=== PATIENT | female | born 1950 | race Hispanic/Latino ===

== ENCOUNTER 2019-10-01 15:39 | Outpatient (CLI) | payer MEDICARE, BC ==
--- NOTE | 2019-10-05 15:10 | MMO ---
Bilateral MAMMO Bilat Screen [facility]. CLINICAL HISTORY: Patient is 69 years old and is seen for screening. The patient has the following family history of breast cancer: niece. VIEWS: The views performed were: bilateral craniocaudal with tomosynthesis and bilateral mediolateral oblique with tomosynthesis. FILMS COMPARED: The present examination has been compared to prior imaging studies performed at [facility] on 12/06/2011, 11/11/2014 and 08/21/2016. This study has been interpreted with the assistance of computer-aided detection. MAMMOGRAM FINDINGS: There are scattered fibroglandular densities. There are stable benign appearing calcifications seen in both breasts. There are no suspicious masses, suspicious calcifications, or new areas of architectural distortion. IMPRESSION: THERE IS NO MAMMOGRAPHIC EVIDENCE OF MALIGNANCY. A ROUTINE FOLLOW-UP MAMMOGRAM IN 1 YEAR IS RECOMMENDED. THE RESULTS OF THIS EXAM WERE SENT TO THE PATIENT. ACR BI-RADS Category 2 - Benign finding MAMMOGRAPHY NOTE: 1. A negative mammogram report should not delay a biopsy if a dominant of clinically suspicious mass is present. 2. Approximately 10% to 15% of breast cancers are not detected by mammography. 3. Adenosis and dense breasts may obscure an underlying neoplasm. Reported by: DAVION OGDEN MD Electonically Signed: [id number]
== END 2019-10-01 15:40 | disposition home or self-care (01) ==
LOC: BICMAMMO 15:39
PROVIDERS: ATTEND Family Medicine Sports Medicine
DX: Z12.31 Encounter for screening mammogram for malignant neoplasm of breast (principal); Z80.3 Family history of malignant neoplasm of breast
CPT/HCPCS: 77063; 77067

== ENCOUNTER 2019-10-08 14:01 | Outpatient (CLI) | payer MEDICARE, BC ==
--- NOTE | 2019-10-08 15:44 | MRI ---
MR OF THE RIGHT SHOULDER WITHOUT CONTRAST: 10/08/19 HISTORY: History of impingement syndrome of the right shoulder. COMPARISON: None. FINDINGS: There is severe tendinosis of the subscapularis. There is complete tear of the long head of the bicep s tendon with retraction to the distal occipital groove. There is prominent degenerative signal and stimulation involving the superior glenoid labrum and biceps anchor complex. There is moderate tendin osis of the supraspinatus and infraspinatus. There is mild AC joint osteoarthrosis. No muscular atrop hy is evident. No enlarged lymph node is present. The glenohumeral articular surface appears within n ormal limits. IMPRESSION: 1. Complete disruption of the long head of the biceps tendon with retraction to the distal bicip ital groove. 2. Prominent degenerative fraying of the superior glenoid labrum and biceps anchor complex. 3. Severe subscapularis and moderate supraspinatus and infraspinatus tendinosis. 4. Mild AC joint osteoarthrosis. POS: CET
== END 2019-10-08 14:02 | disposition home or self-care (01) ==
LOC: BICMRI 14:01
PROVIDERS: ATTEND Orthopaedic Surgery
DX: M75.41 Impingement syndrome of right shoulder (principal); M19.011 Primary osteoarthritis, right shoulder; M75.91 Shoulder lesion, unspecified, right shoulder

== ENCOUNTER 2020-04-06 14:05 | Outpatient (CLI) | payer MEDICARE, BC ==
--- NOTE | 2020-04-06 14:57 | BD ---
EXAM: Bone densitometry using DEXA HISTORY: 69 yo female. Screening for postmenopausal osteoporosis FINDINGS: L1--bone mineral density 1.062 g/sq cm; T score 0.7 ; Z score 2.4 L2--bone mineral density 1.083 g/sq cm; T score 0.5 ; Z score 2.4 L3--bone mineral density 1.105 g/sq cm; T score 0.2 ; Z score 2.2 L4--bone mineral density 1.126 g/sq cm; T score 0.6 ; Z score 2.7 Total L1-L4--bone mineral density 1.096 g/sq cm; T score 0.4 ; Z score 2.4 Left femoral neck--bone mineral density0.809; T score -0.4 ; Z score 1.1 Total proximal left femur--bone mineral density 1.087; T score 1.2 ; Z score 2.2 There has been an interval improvement of 9.4% in the BMD of the lumbar spine since the previous stud y of 04/19/2009. IMPRESSION: Normal BMD
== END 2020-04-06 14:06 | disposition home or self-care (01) ==
LOC: BICMAMMO 14:05
PROVIDERS: ATTEND Family Medicine Sports Medicine
DX: Z13.820 Encounter for screening for osteoporosis (principal); Z78.0 Asymptomatic menopausal state
CPT/HCPCS: 77080

== ENCOUNTER 2020-09-20 21:45 | Emergency (ER) | payer MEDICARE, BC ==
[~2020-09-20 21:45] MED LIST: Iopamidol 370 76% 100 ML VIAL ONE
[2020-09-20] MEDS ORDERED: Ondansetron PF 4 MG/2 ML Vial ONE (22:27)
[2020-09-20] MEDS ORDERED: Acetaminophen 500 MG TAB ONE (22:27)
[2020-09-20 22:28] LABS: #Basophils 0.1 thou/uL (0.0-0.2); #Lymphocytes 0.8 thou/uL (1.20-3.40); #Monocytes 0.2 thou/uL (0.11-0.59); #Neutrophils 3.7 thou/uL (1.40-6.50); %Basophils 1.4 % (0.0-1.0); %Eosinophils 0.2 % (0.0-10.0); %Lymphocytes 16.5 % (21.0-51.0); %Monocytes 4.8 % (0.0-10.0); %Neutrophils 77.1 % (42.0-75.0); Hemoglobin 11.7 g/dL (12.0-16.0); Mean Corpuscular HGB CONC 30.4 g/dL (32.0-36.0); Mean Corpuscular Hemoglobin 27.5 pg (27.0-31.0); Mean Corpuscular Volume 90.4 fL (78.0-98.0); Mean Platelet Volume 9.8 fL (7.4-10.4); Platelet Count 132 thou/uL (130-400); RBC Distribution Width 14.4 % (11.5-14.5); Red Blood Cell (RBC) Count 4.25 mill/uL (4.20-5.40); White Blood Cell (WBC) Count 4.8 thou/uL (4.8-10.8)
[2020-09-20 22:56] LABS: ALT (SGPT) 9 U/L (8-55); AST (SGOT) 18 U/L (5-34); Albumin 2.9 g/dL (3.4-4.8); Alkaline Phosphatase 55 U/L (40-110); Anion Gap 12 mmol/L (10-20); BUN (Urea Nitrogen) 10 mg/dL (9.8-20.1); Bilirubin, Total 0.3 mg/dL (0.2-1.2); Calc. Creatinine Clearance 0 mL/min (70-130); Calcium 7.5 mg/dL (7.8-10.44); Carbon Dioxide 26 mmol/L (23-31); Chloride 106 mmol/L (98-107); Glucose 173 mg/dL (80-115); Potassium 4.6 mmol/L (3.5-5.1); Protein, Total 5.9 g/dL (5.8-8.1); Sodium 139 mmol/L (136-145)
--- NOTE | 2020-09-21 09:02 | CT ---
PRELIMINARY REPORT/[facility]/EMERGENCY AFTER HOURS PROCEDURE: EXAM: CTA Chest with Intravenous Contrast CLINICAL HISTORY: 70-year-old female with past medical history significant for hypertension diabetes as well as reflux who states that she was diagnosed with coronavirus on 13 September. Patient states that she has had wo rsening shortness of breath that is aggravated by movement patient still able to speak in complete se ntences she does not have any underlying lung conditions she has not had any lower extremity swelling she had chest pain yesterday morning that lasted approximately 30 minutes. Patient had 2 stents plac ed 14 years ago TECHNIQUE: Axial CTA images of the chest with intravenous contrast. Three-dimensional MIP/volume rendered reform ations were performed. CONTRAST: With; ISOVUE 370 56mL COMPARISON: None provided. FINDINGS: PULMONARY ARTERIES No CT evidence of a pulmonary embolism. AORTA No thoracic aortic aneurysm or dissection. LUNGS There are multiple patchy infiltrates in both lungs, findings highly suggestive of Covid 19 pneumonia . Clinical correlation recommended. PLEURAL SPACES No pleural effusion. No pneumothorax. HEART AND MEDIASTINUM No cardiomegaly. No significant pericardial effusion. LYMPH NODES No lymphadenopathy. BONES No focal osseous abnormality or acute fracture. CHEST WALL AND UPPER ABDOMEN The patient has had a cholecystectomy. IMPRESSION: 1. There are multiple patchy infiltrates in both lungs, findings highly suggestive of Covid 19 pneumo los. Clinical correlation recommended. 2. No CT evidence of a pulmonary embolism. ELECTRONICALLY SIGNED BY: Clara Thurston MD Sep 21, 2020 1:50:18 AM [employer] This report is intended for review by the ordering physician only, in accordance of law. If you recei ve this report in error, please call [facility] at [phone]. FINAL REPORT CTA CHEST: Angio protocol with multiplanar reconstruction and 3D postprocessing. I am in agreement with the preliminary report issued by [facility]. POS: AGW
--- NOTE | 2020-09-23 13:44 | EKG ---
Test Reason : Blood Pressure : / mmHG Vent. Rate : 076 BPM Atrial Rate : 076 BPM P-R Int : 000 ms QRS Dur : 068 ms QT Int : 366 ms P-R-T Axes : 000 023 021 degrees QTc Int : 411 ms Normal sinus rhythm Low voltage QRS Junctional ST depression, probably normal Abnormal ECG Confirmed by MEERA DORMAN ([id number]), editorial director GREG HEARN ([id number]) on 09/23/2020 1:44:01 PM Referred By: Confirmed By:MEERA DORMAN
== END 2020-09-21 02:26 | disposition home or self-care (01) ==
LOC: ERS 21:45
DX: U07.1 COVID-19 (principal); I25.10 Atherosclerotic heart disease of native coronary artery without angina pectoris; I10 Essential (primary) hypertension; E11.42 Type 2 diabetes mellitus with diabetic polyneuropathy; Z79.4 Long term (current) use of insulin; Z79.82 Long term (current) use of aspirin
CPT/HCPCS: 36415; 71275; 80053; 84484; 85025; 93005; 96374; J2405; Q9967

== ENCOUNTER 2020-11-06 15:36 | Outpatient (CLI) | payer MEDICARE, BC | END 2020-11-06 15:37 | disposition home or self-care (01) | LOC: BICMAMMO 15:36 | PROVIDERS: ATTEND Family Medicine Sports Medicine | DX: Z12.31 Encounter for screening mammogram for malignant neoplasm of breast (principal); Z80.3 Family history of malignant neoplasm of breast; Z91.89 Other specified personal risk factors, not elsewhere classified | CPT/HCPCS: 77063; 77067 ==

== ENCOUNTER 2022-09-16 08:58 | Outpatient (CLI) | payer MEDICARE, BC | END 2022-09-16 08:59 | disposition home or self-care (01) | LOC: BICMAMMO 08:58 | PROVIDERS: ATTEND Family Medicine Sports Medicine | DX: Z12.31 Encounter for screening mammogram for malignant neoplasm of breast (principal); Z13.820 Encounter for screening for osteoporosis; Z78.0 Asymptomatic menopausal state; Z80.3 Family history of malignant neoplasm of breast; Z91.89 Other specified personal risk factors, not elsewhere classified | CPT/HCPCS: 77063; 77067; 77080 ==

== ENCOUNTER 2024-07-26 14:41 | Outpatient (CLI) | payer MEDICARE, BC | END 2024-07-26 14:42 | disposition home or self-care (01) | LOC: BICMAMMO 14:41 | PROVIDERS: ATTEND Family Medicine Sports Medicine | DX: Z12.31 Encounter for screening mammogram for malignant neoplasm of breast (principal); Z80.3 Family history of malignant neoplasm of breast; Z91.89 Other specified personal risk factors, not elsewhere classified | CPT/HCPCS: 77063; 77067 ==